=== PATIENT | male | born 1940 | race Caucasian/White ===

== ENCOUNTER 2023-04-07 01:41 | Inpatient (IN) | payer MEDICARE, BC ==
[2023-04-07 02:16] LABS: #Eosinphils 0.2 thou/uL (0.0-0.7); #Monocytes 0.8 thou/uL (0.11-0.59); #Neutrophils 7.5 thou/uL (1.40-6.50); %Basophils 0.3 % (0.0-1.0); %Lymphocytes 17.4 % (21.0-51.0); %Monocytes 7.8 % (0.0-10.0); %Neutrophils 72.3 % (42.0-75.0); Hematocrit 32.2 % (42.0-52.0); Mean Corpuscular HGB CONC 34.2 g/dL (32.0-36.0); Mean Corpuscular Hemoglobin 32.4 pg (27.0-31.0); Mean Platelet Volume 10.9 fL (7.4-10.4); RBC Distribution Width 13.9 % (11.5-14.5); Red Blood Cell (RBC) Count 3.39 mill/uL (4.70-6.10); White Blood Cell (WBC) Count 10.4 10x3/uL (4.8-10.8)
[2023-04-07 02:17] LABS: Platelet Count 85 10x3/uL (130-400)
[2023-04-07 02:32] LABS: ALT (SGPT) 16 U/L (8-55); AST (SGOT) 35 U/L (5-34); Albumin 2.7 g/dL (3.4-4.8); Alkaline Phosphatase 89 U/L (40-110); Anion Gap 12 mmol/L (10-20); BUN (Urea Nitrogen) 13 mg/dL (8.4-25.7); Bilirubin, Total 0.5 mg/dL (0.2-1.2); Calc. Creatinine Clearance 0 mL/min (70-130); Carbon Dioxide 20 mmol/L (23-31); Chloride 111 mmol/L (98-107); Estimated GFR 72; Globulin 2.3 g/dL (2.4-3.5); Glucose 96 mg/dL (83-110); Potassium 4.1 mmol/L (3.5-5.1); Sodium 139 mmol/L (136-145)
[2023-04-07 02:38] LABS: Critical Call Chem Troponin I NUR.SH13@0238; Troponin I 0.443 ng/mL (< 0.028)
[2023-04-07 03:33] LABS: Bacteria/HPF None Seen HPF (None Seen); Bilirubin Negative (Negative); Blood, Urine Trace (Negative); CAUTI Indications for Culture Pelvic or flank pain; Clarity Clear (Clear); Glucose, Urine (Dipstick) Normal (Negative); Ketone, Urine Negative (Negative); Leukocyte Negative Leu/uL (Negative); Nitrite Negative (Negative); Protein, Urine (Dipstick) 30 mg/dL (Neg-Trace); RBC/HPF 0-3 HPF (0-3); Squamous Epithelial 0-3 HPF (0-3); Urobilinogen 3 mg/dL (Less than 2); pH, Urine 5.5 (5.0-9.0)
[2023-04-07 03:34] LABS: Urine Culture Reflex No No
[2023-04-07 05:14] LABS: Lactic Acid 0.9 mmol/L (0.5-2.2)
[2023-04-07] MEDS ORDERED: Sodium Chloride 0.9% 100 ML ONE (05:57)
[2023-04-07] MEDS ORDERED: cefTRIAXone (ROCEPHIN) 2 GM VIAL ONE (05:57)
[2023-04-07 06:07] LABS: Critical Call Chem Troponin I NUR.SS14 @0606; Troponin I 0.724 ng/mL (< 0.028)
[2023-04-07] MEDS ORDERED: Acetaminophen 325 MG TAB PO PRN (07:49)
[2023-04-07] MEDS ORDERED: Senokot S 8.6-50 MG TAB PO PRN (07:49)
[2023-04-07 07:54] VITALS: BMI 19.5
[2023-04-07] MEDS: Famotidine 20 MG TAB PO SCH (08:49)
[2023-04-07] MEDS: Amlodipine 5 MG TAB PO SCH (08:49)
[2023-04-07] MEDS: Isosorbide Mononitrate 60 MG ER.TAB PO SCH (08:50)
[2023-04-07] MEDS: Apixaban 2.5 MG TAB PO SCH (08:50)
[2023-04-07] MEDS: Lisinopril 20 MG TAB PO SCH (08:50)
[2023-04-07] MEDS: Levothyroxine Sodium 75 MCG TAB PO SCH (08:50)
[2023-04-07] MEDS: predniSONE 5 MG TAB PO SCH (08:50)
[2023-04-07] MEDS ORDERED: Aspirin Chewable 81 MG TAB PO SCH (09:00)
[2023-04-07 09:18] LABS: Troponin I 0.782 ng/mL (< 0.028)
[2023-04-07 13:45] LABS: Critical Call Chem Troponin I NUR.MY@1345; Troponin I 0.739 ng/mL (< 0.028)
[2023-04-07] MEDS: Rosuvastatin 20 MG TAB PO SCH (20:08)
[2023-04-08 07:42] LABS: #Eosinphils 0.2 thou/uL (0.0-0.7); #Monocytes 0.6 thou/uL (0.11-0.59); #Neutrophils 6.2 thou/uL (1.40-6.50); %Basophils 0.4 % (0.0-1.0); %Eosinophils 1.8 % (0.0-10.0); %Lymphocytes 15.6 % (21.0-51.0); %Monocytes 7.3 % (0.0-10.0); %Neutrophils 74.7 % (42.0-75.0); Hematocrit 29.1 % (42.0-52.0); Hemoglobin 9.8 g/dL (14.0-18.0); Mean Corpuscular HGB CONC 33.7 g/dL (32.0-36.0); Mean Corpuscular Hemoglobin 32.2 pg (27.0-31.0); Mean Corpuscular Volume 95.7 fl (78.0-98.0); Mean Platelet Volume 11.9 fL (7.4-10.4); RBC Distribution Width 13.8 % (11.5-14.5); Red Blood Cell (RBC) Count 3.04 mill/uL (4.70-6.10); White Blood Cell (WBC) Count 8.3 10x3/uL (4.8-10.8)
[2023-04-08 07:46] LABS: Platelet Count 75 10x3/uL (130-400)
[2023-04-08 08:04] LABS: Anion Gap 10 mmol/L (10-20); BUN (Urea Nitrogen) 20 mg/dL (8.4-25.7); Calc. Creatinine Clearance 54 mL/min (70-130); Calcium 8.1 mg/dL (7.8-10.44); Carbon Dioxide 23 mmol/L (23-31); Cardiac Risk 3.6 (Less than 4.5); Chloride 112 mmol/L (98-107); Cholesterol 116 mg/dl (< 200 Desired); Estimated GFR 86; Glucose 82 mg/dL (83-110); HDL Cholesterol 32 mg/dL (>60 Neg Risk); LDL Cholesterol, Calculated 68 mg/dL; Potassium 3.9 mmol/L (3.5-5.1); Sodium 141 mmol/L (136-145); Triglycerides 79 mg/dL (Less than 150)
[2023-04-08] MEDS: cefTRIAXone\\ROCEPHIN 2 GM in Sodium Chloride 0.9% 100 ML IVPB SCH (09:39)
[2023-04-09 05:48] LABS: #Eosinphils 0.5 thou/uL (0.0-0.7); #Monocytes 0.4 thou/uL (0.11-0.59); %Basophils 0.5 % (0.0-1.0); %Eosinophils 8.7 % (0.0-10.0); %Lymphocytes 17.4 % (21.0-51.0); %Monocytes 6.9 % (0.0-10.0); %Neutrophils 66.2 % (42.0-75.0); Hematocrit 26.9 % (42.0-52.0); Hemoglobin 9.2 g/dL (14.0-18.0); Mean Corpuscular HGB CONC 34.2 g/dL (32.0-36.0); Mean Corpuscular Hemoglobin 33.1 pg (27.0-31.0); Mean Corpuscular Volume 96.8 fl (78.0-98.0); Mean Platelet Volume 11.4 fL (7.4-10.4); Platelet Count 86 10x3/uL (130-400); Red Blood Cell (RBC) Count 2.78 mill/uL (4.70-6.10)
[2023-04-09 06:40] LABS: Anion Gap 8 mmol/L (10-20); BUN (Urea Nitrogen) 19 mg/dL (8.4-25.7); Calc. Creatinine Clearance 53 mL/min (70-130); Calcium 7.8 mg/dL (7.8-10.44); Carbon Dioxide 25 mmol/L (23-31); Chloride 114 mmol/L (98-107); Estimated GFR 85; Glucose 70 mg/dL (83-110); Potassium 3.7 mmol/L (3.5-5.1); Sodium 143 mmol/L (136-145)
[2023-04-10] MEDS: Levothyroxine Sodium 75 MCG TAB PO SCH (05:10)
[2023-04-10 05:54] LABS: #Eosinphils 0.1 thou/uL (0.0-0.7); #Monocytes 0.6 thou/uL (0.11-0.59); #Neutrophils 5.5 thou/uL (1.40-6.50); %Basophils 0.5 % (0.0-1.0); %Eosinophils 1.1 % (0.0-10.0); %Lymphocytes 18.3 % (21.0-51.0); %Monocytes 7.9 % (0.0-10.0); %Neutrophils 71.9 % (42.0-75.0); Hematocrit 26.9 % (42.0-52.0); Hemoglobin 9.1 g/dL (14.0-18.0); Mean Corpuscular HGB CONC 33.8 g/dL (32.0-36.0); Mean Corpuscular Hemoglobin 32.3 pg (27.0-31.0); Mean Corpuscular Volume 95.4 fl (78.0-98.0); Mean Platelet Volume 10.5 fL (7.4-10.4); Platelet Count 104 10x3/uL (130-400); RBC Distribution Width 13.6 % (11.5-14.5); Red Blood Cell (RBC) Count 2.82 mill/uL (4.70-6.10); White Blood Cell (WBC) Count 7.6 10x3/uL (4.8-10.8)
[2023-04-10 06:04] LABS: Anion Gap 9 mmol/L (10-20); BUN (Urea Nitrogen) 20 mg/dL (8.4-25.7); Calc. Creatinine Clearance 51 mL/min (70-130); Carbon Dioxide 24 mmol/L (23-31); Chloride 110 mmol/L (98-107); Estimated GFR 85; Glucose 79 mg/dL (83-110); Potassium 3.8 mmol/L (3.5-5.1); Sodium 139 mmol/L (136-145)
[2023-04-10 16:16] VITALS: BP 117/58; TEMP 98
[2023-04-11] MEDS ORDERED: Amoxicillin/Potassium Clav 875 MG TAB PO SCH (09:00)
== END 2023-04-10 17:18 | disposition home or self-care (01) | DRG 871 ==
LOC: ERS 01:41 → 2NO 05:38
PROVIDERS: ADMIT Student in an Organized Health Care Education/Training Program; ATTEND Hospitalist
PROC: 0T9B70Z Drainage of Bladder with Drainage Device, Via Natural or Artificial Opening (ICD-10-PCS; principal; 2023-04-07)
PROC: 3E03329 Introduction of Other Anti-infective into Peripheral Vein, Percutaneous Approach (ICD-10-PCS; 2023-04-07)
DX: A41.9 Sepsis, unspecified organism (principal); I21.A1 Myocardial infarction type 2; Z91.041 Radiographic dye allergy status; Z88.8 Allergy status to other drugs, medicaments and biological substances; I48.91 Unspecified atrial fibrillation; E78.00 Pure hypercholesterolemia, unspecified; E03.9 Hypothyroidism, unspecified; I50.9 Heart failure, unspecified; I11.0 Hypertensive heart disease with heart failure; Z79.01 Long term (current) use of anticoagulants; Z79.82 Long term (current) use of aspirin; Z79.899 Other long term (current) drug therapy; D69.6 Thrombocytopenia, unspecified; G70.00 Myasthenia gravis without (acute) exacerbation; I25.10 Atherosclerotic heart disease of native coronary artery without angina pectoris; Z95.1 Presence of aortocoronary bypass graft
CPT/HCPCS: 36415; 51701; 70450; 70551; 71045; 72125; 80048; 80053; 80061; 81001; 82533; 83605; 83880; 84145; 84443; 84484; 85025; 87086; 93005; 96365; J0696; J3490; J7512